=== PATIENT | female | born 1945 | race Caucasian/White ===

== ENCOUNTER 2016-09-18 07:00 | Day surgery (SDC) | payer OTHER, MEDICARE ==
[~2016-09-18] VITALS: Ht 160 cm; Wt 80.2 kg
[~2016-09-18 07:00] MED LIST: CRANBERRY500 M3 PO; LO-DOSE ASPIRIN81 M2 PO; MAGNESIUM400 M1 PO; PRESERVISION T1 EACH PO; SINGULAIR10 MG PO; VITAMIN B-125000 MC1 PO; VITAMIN D2000 UNI1 PO
[2016-09-18 07:46] VITALS: BP 159/62
[2016-09-18 12:05] VITALS: BP 157/86
[2016-09-18 13:00] VITALS: BP 145/81
== END 2016-09-18 13:00 | disposition home or self-care (01) ==
LOC: SDC 07:00
PROC: 0HBT0ZX Excision of Right Breast, Open Approach, Diagnostic (ICD-10-PCS; principal; 2016-09-18)
DX: D24.1 Benign neoplasm of right breast (principal); N60.11 Diffuse cystic mastopathy of right breast; N60.01 Solitary cyst of right breast; Z79.82 Long term (current) use of aspirin; Z91.040 Latex allergy status; Z91.09 Other allergy status, other than to drugs and biological substances
CPT/HCPCS: 88305; 88307; J0690; J1100; J1170; J2250; J2405; J3010; S0020